=== PATIENT | male | born 1960 | race Caucasian/White ===

== ENCOUNTER 2024-09-22 23:14 | Inpatient (IN) | payer MEDICARE, MEDICAID, SELFPAY ==
[2024-09-22 23:15] VITALS: BMI 23.8
[2024-09-22 23:26] VITALS: BP 126/85; PULSE 103; RESP 18; TEMP 37.1; O2SAT 95
[2024-09-23] VITALS (29 sets, daily range): BP systolic 90–153; BP diastolic 54–88; PULSE 58–81; RESP 12–20; TEMP 36.1–36.9; O2SAT 90–100; BMI 23.9
--- NOTE | 2024-09-23 00:06 | XR_ITS ---
Examination: CT left elbow, with intravenous contrast. 2-D sagittal reconstructions. 2-D coronal reconstructions. 3-D reconstructions. Date and time of exam:September 23, 2024, 0146 hours INDICATION: Redness swelling and pain involving the amenable beginning 2 weeks ago CTDI: vol (mGy):4.50 DLP: (mGycm):81 Technique: Multiple 1.25 mm axial sections of the left elbow with intravenous administration of 60 cc Isovue 370 have been obtained. 2-D sagittal and coronal reconstructions have been obtained. 3-D reconstructions have been obtained. Low dose protocols were performed. One or more of the following dose reduction techniques were used; automated exposure control, adjustment of the mA and/or KV according to patient size, use of iterative reconstruction technique. 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 No acute fracture No cortical bone destruction Large elbow effusion Given the patient's presentation, consider MRI elbow without contrast follow-up
--- NOTE | 2024-09-23 00:06 | XR_ITS ---
Examination: Left elbow 3 views Technique: Elbow AP, oblique, lateral 3 views Exam date and time: September 18, 2024 0103 hours INDICATIONS: Redness swelling and pain involving the elbow 2 weeks. FINDINGS: Advanced elbow osteoarthritis Large elbow effusion. No acute fracture. No francisco cortical bone destruction IMPRESSION: Advanced elbow osteoarthritis. No francisco cortical bone destruction.
--- NOTE | 2024-09-23 00:11 | PD.EDSKIN ---
ED Skin Abcess FB-RME/HPI General Chief complaint: General Adult/Misc Complain Stated complaint: LEFT ELBOW SWELLING Time Seen by Provider: 09/22/24 23:41 Arrival date/time: 09/22/24 23:14 RME / HPI RME / HPI narrative: This section includes all my notes and documentations, including HPI, PE, and ED course. Yaron Herron MD HPI: 63 y/o male with left elbow pain and swelling for 2 weeks but severely worse today. Denies any injury. No fever or chills. Had septic joint at the elbow in the past. No other complaints. ROS: All negative except as documented in HPI. Physical Exam: General: Alert and oriented. No acute distress when remaining still. Eyes: Conjunctivae and lids clear. ENT: No nasal congestion. Neck: Supple. Heart: RRR. Lungs: No respiratory distress. Good air movement. No rhonchi, wheezing, rales. Abdomen: Soft and nontender. Skin: Warm and dry. Neuro: Alert and oriented X 3. Left Elbow: Remarkable for severe edema/calor/tenderness. Equivocal erythema. I reviewed all diagnostic test results: My interpretation of the Elbow x-ray is no acute fracture. My review of the Elbow CT report is: Nonspecific large joint effusion and subcutaneous edema. Recommend clinical correlation to exclude septic joint. Blood tests remarkable for ESR 50, glucose 147, CRP 6.9. Synovial fluid showed 65,096 WBC and 88% neutrophils. Synovial crystals pending. At this point, diagnoses include: Left elbow septic joint and hyperglycemia. Treatment here included: Joint aspiration (see procedure note), IVF, Toradol 30 mg, SoluMedrol 125 mg, cefepime 2 g IV, and vancomycin 2 g IV. I discussed the case with our orthopedic surgeon and our hospitalist. About the presentation and exam and diagnostics and treatments here. And need of further care in the hospital. Will accept the patient. Yaron Herron MD Related Data Home Medications ?Medication ?Instructions ?Recorded ?Confirmed No Known Home Medications 09/24/24 09/24/24 Allergies Allergy/AdvReac Type Severity Reaction Status Date / Time amoxicillin Allergy Unknown Verified 09/17/09 04:46 codeine Allergy Unknown Verified 09/17/09 04:46 Review of Systems Review of Systems Systems Reviewed: All systems reviewed, normal except as documented Past Medical History Social History SMOKING STATUS: Current some day smoker ED Exam Narrative Physical exam: Refer to HPI Course Quality Measures none Orders Category Date Time Status Admit to Inpatient Status Routine Admission 09/23/24 05:18 Active Patient Condition Routine Admission 09/23/24 05:18 Ordered Bedside Blood Glucose ACHS Care 09/23/24 05:29 Completed COVID-19 Screening Questionnaire NOW Care 09/23/24 05:[address] Screening NOW Care 09/23/24 00:07 Completed Decision to Admit X1 Care 09/23/24 05:00 Completed Education, Diabetic NOW Care 09/23/24 05:30 Ordered Miscellaneous Nursing Order NOW Care 09/23/24 05:18 Completed NPO NOW Care 09/23/24 05:03 Completed Notify provider NEEDED Care 09/23/24 05:18 Completed Obtain Written Consent For: .NOW Care 09/23/24 05:09 Completed Saline [Insert IV] NOW Care 09/23/24 00:05 Completed Straight [In and Out Catheter] X1 Care 09/23/24 00:05 Completed Consult to Orthopedic Stat Cons 09/23/24 04:58 Ordered Referral Registered Dietitian Routine Cons 09/23/24 05:29 Active Diet NPO (NOW) Diet 09/23/24 05:[address] elbow LT w con Stat Exams 09/23/24 00:06 Completed XR elbow comp LT min 3V Stat Exams 09/23/24 00:06 Completed ABG [Arterial Blood Gas] Stat Lab 09/23/24 01:55 Completed Alcohol, Blood Medical Stat Lab 09/23/24 00:14 Completed Bilirubin,Direct Stat Lab 09/23/24 00:14 Completed Blood Culture (Lab) Stat Lab 09/23/24 00:19 Results Body Fld Cult w April & Gram St Stat Lab 09/23/24 03:30 Completed CBC AM DRAW Lab 09/24/24 05:20 Completed CBC AM DRAW Lab 09/25/24 04:30 Completed CBC Stat Lab 09/23/24 00:14 Completed CMP [Comprehensive Metabolic Panel] Stat Lab 09/23/24 00:14 Completed CRP [C-Reactive Protein] Stat Lab 09/23/24 00:14 Completed Comprehensive Metabolic Panel AM DRAW Lab 09/24/24 05:20 Completed Comprehensive Metabolic Panel AM DRAW Lab 09/25/24 04:30 Completed Drug Screen,Urine Stat Lab 09/23/24 01:03 Completed ESR [Sed Rate (ESR)] Stat Lab 09/23/24 00:14 Completed Hemoglobin A1C [Glycohemoglobin w (eAG)] Stat Lab 09/23/24 00:14 Completed Lactate (Lactic Acid) Stat Lab 09/23/24 00:14 Completed Magnesium AM DRAW Lab 09/24/24 05:20 Completed Magnesium AM DRAW Lab 09/25/24 04:30 Completed Magnesium Stat Lab 09/23/24 00:14 Completed Partial Thromboplastin Time AM DRAW Lab 09/24/24 05:20 Completed Phosphorous AM DRAW Lab 09/24/24 05:20 Completed Phosphorous AM DRAW Lab 09/25/24 04:30 Completed Procalcitonin Stat Lab 09/23/24 00:14 Completed Prothrombin Time with INR AM DRAW Lab 09/24/24 05:20 Completed Synovial Fluid, Cell Cnt/Diff Stat Lab 09/23/24 03:30 Completed UA, C/S IF [Urinalysis, C/S if Indicated] Stat Lab 09/23/24 01:03 Completed Uric Acid Stat Lab 09/23/24 00:14 Completed Acetaminophen Tab [Tylenol Tab] Med 09/23/24 05:18 Discontinued 650 mg PO Q6H PRN Cefepime Inj [Maxipime Inj] 2 gm Med 09/23/24 14:00 Discontinued SODIUM CHLORIDE 0.9% (Popper) [Ns 0.9% (P)] 50 ml IV Q8HR Dextrose 50% Syr [D50w Syringe Abboject] Med 09/23/24 05:29 Discontinued 25 ml IV Q15MIN PRN Dextrose 50% Syr [D50w Syringe Abboject] Med 09/23/24 05:29 Discontinued 50 ml IV Q15MIN PRN Docusate Sod [Colace] Med 09/23/24 05:18 Discontinued 100 mg PO QDAY PRN Enoxaparin [Lovenox] Med 09/23/24 09:00 Discontinued 40 mg SC QDAY Folic Acid Med 09/23/24 09:00 Discontinued 1 mg PO QDAY Glucagon Inj Med 09/23/24 05:29 Discontinued 1 mg IM Q15MIN PRN INSULIN LISPRO (AdmeLOG) [HumaLOG] Med 09/23/24 06:00 Discontinued See Protocol SC Q6HR Ketorolac Inj [Toradol Inj] Med 09/23/24 05:27 Discontinued 30 mg IVP Q6HR PRN Ketorolac Inj [Toradol Inj] Med 09/23/24 00:06 Discontinued 30 mg IVP X1 ONE LORazepam [Ativan] Med 09/23/24 05:56 Discontinued 0.5 mg PO Q4HR PRN LORazepam [Ativan] Med 09/23/24 05:56 Discontinued 1 mg PO Q4HR PRN LORazepam [Ativan] Med 09/23/24 05:56 Discontinued 2 mg PO Q4HR PRN Lidocaine 1% 20 ml [Xylocaine 1% 20 ML] Med 09/23/24 03:06 Discontinued 20 ml INFL X1 ONE MethylPREDNISolone.* [SoluMEDROL Inj] Med 09/23/24 00:06 Discontinued 125 mg IVP X1 ONE Ringers Lactated 1000 ml [Lactated Ringers] 1,000 ml Med 09/23/24 05:26 Discontinued IV 75 mls/hr Senna [Senokot] Med 09/23/24 05:18 Discontinued 1 tab PO QDAY PRN Sodium Chloride 0.9% 1000 ml [Ns] 1,000 ml Med 09/23/24 00:06 Discontinued IV 999 mls/hr Thiamine [Vitamin B-1] Med 09/23/24 09:00 Discontinued 100 mg PO QDAY Vancomycin Inj 2,000 mg Med 09/23/24 04:24 Discontinued Sodium Chloride 0.9% 500 ml [Ns] 500 ml IV X1 Vancomycin Pharmacy to Dose Med 09/23/24 09:00 Discontinued 1 each IV QDAY PRN Vancomycin/Water 1Gm Ivpb 200 ml Med 09/23/24 06:15 Discontinued IV X1 Vancomycin/Water 1Gm Ivpb 200 ml Med 09/23/24 07:55 Discontinued IV X1 cefTRIAXone/D5w 1gm IV premix [Rocephin/D5w 1gm IV Med 09/23/24 04:24 Discontinued premix] 1 gm in 50 ml IV X1 cefTRIAXone/D5w 1gm IV premix [Rocephin/D5w 1gm IV Med 09/23/24 04:57 Discontinued premix] 1 gm in 50 ml IV X1 Code Status Routine Oth 09/23/24 05:18 Completed Vital Signs Vital signs: Vital Signs Temperature 98.8 F 09/22/24 23:26 Pulse Rate 103 H 09/22/24 23:26 Respiratory Rate 18 09/22/24 23:26 Blood Pressure 126/85 H 09/22/24 23:26 Pulse Oximetry (%) 95 09/22/24 23:26 Oxygen Delivery Method Room Air 09/22/24 23:26 PROCEDURES: Joint Aspiration/Injection Joint Asp./Inject. 1: Time Out Performed: Yes Side of body: left Joint Aspirated: elbow Ultrasound Guidance: No Skin Prep: Povidone-Iodine1% Local Anesthetic: lidocaine 1% Amount of anesthesia used (mL): 6 Needle Size Used: 20G Fluid Obtained: turbid Total fluid obtained (mL): 9 Patient Tolerated Procedure: well Complications: none Skin / Abscess / Foreign Body MDM Narrative MDM Narrative:: Scribe Attestation: Parvin Avila, am scribing for and in the presence of Dr. Herron. Provider Notation: Although this document has been carefully reviewed, there may still be some phonetic and other typographical errors.? These errors are purely grammatical due to imperfections in the software program and should not be construed in any way to? compromise the substance of the patient's medical care during this visit. 63 y/o male with left elbow pain and swelling for 2 weeks but severely worse today. Denies any injury. No fever or chills. Had septic joint at the elbow in the past. No other complaints. Patient data External records reviewed:: [facility] previous records (Reviewed ED records from 03/12/22. Patient was seen for Cervical radiculopathy.) Clinical information provided by:: patient Social determinants that could affect healthcare access:: none Patient has the following chronic illnesses:: None reported How is presenting disease/condition affected by chronic disease/condition?: no chronic disease Evaluation data The following diagnostics were reviewed and interpreted by me:: lab results and radiology exam(s) Lab and/or radiology exams considered but not ordered:: None Interpretation Summary: I reviewed all diagnostic test results: My interpretation of the Elbow x-ray is no acute fracture. My review of the Elbow CT report is: Nonspecific large joint effusion and subcutaneous edema. Recommend clinical correlation to exclude septic joint. Blood tests remarkable for ESR 50, glucose 147, CRP 6.9. Synovial fluid showed 65,096 WBC and 88% neutrophils. Medications / Prescriptions Medications or Prescriptions considered but not ordered:: None Medication administrations:: Medication Administration History Discontinued Medications Acetaminophen (Acetaminophen 325 Mg Tablet) 650 mg PO Q6H PRN PRN Reason: Fever >100.4 or pain 1-3 Stop: 10/23/24 05:17 Last Admin: 09/25/24 04:08 Dose: 650 mg Documented By: SANTINO Dexamethasone Sodium Phosphate (Dexamethasone Sod Phos Inj 10 Mg/Ml Vial) Confirm Administered Dose 10 mg .ROUTE .STK-MED ONE Stop: 09/23/24 14:30 Dextrose (Dextrose 50%-Water Inj 50 Ml Syringe) 25 ml IV Q15MIN PRN PRN Reason: BG 50-70 responsive npo pt Stop: 10/23/24 05:28 Dextrose (Dextrose 50%-Water Inj 50 Ml Syringe) 50 ml IV Q15MIN PRN PRN Reason: BG <50 OR BG <70 & pt unresponsive Stop: 10/23/24 05:28 Docusate Sodium (Docusate Sod 100 Mg Capsule) 100 mg PO QDAY PRN; Protocol PRN Reason: CONSTIPATION Stop: 10/23/24 05:17 Enoxaparin Sodium (Enoxaparin Sod Inj 40 Mg/0.4 Ml Syringe) 40 mg SC QDAY [facility] Stop: 10/07/24 08:59 Last Admin: 09/25/24 08:00 Dose: 40 mg Documented By: Admin: 09/24/24 08:30 Dose: 40 mg Documented By: Admin: 09/23/24 10:12 Dose: Not Given Documented By: SONAL Non-Admin Reason: Held for Procedure Fentanyl Citrate (Fentanyl Cit Inj 50 Mcg/Ml Amp 2ml) Confirm Administered Dose 100 mcg .ROUTE .STProacta-MED ONE Stop: 09/23/24 14:27 Folic Acid (Folic Acid 1 Mg Tablet) 1 mg PO QDAY [facility] Stop: 10/23/24 08:59 Last Admin: 09/25/24 08:00 Dose: 1 mg Documented By: Admin: 09/24/24 08:30 Dose: 1 mg Documented By: Admin: 09/23/24 10:11 Dose: Not Given Documented By: SONAL Non-Admin Reason: NPO Glucagon (Glucagon Inj 1 Mg Vial) 1 mg IM Q15MIN PRN PRN Reason: BG <70, and no IV access Sodium Chloride (Ns) 1,000 mls @ 999 mls/hr IV .Q1H1M ONE Stop: 09/23/24 01:06 Last Infusion: 09/23/24 01:16 Dose: Infused Documented By: Admin: 09/23/24 00:22 Dose: 999 mls/hr Documented By: CVL Ceftriaxone Sodium/Dextrose (Rocephin/D5w 1gm Iv Premix) 1 gm in 50 mls @ 100 mls/hr IV X1 ONE Stop: 09/23/24 04:53 Last Infusion: 09/23/24 05:02 Dose: Infused Documented By: Admin: 09/23/24 04:35 Dose: 100 mls/hr Documented By: CVL Vancomycin HCl 2,000 mg/ (Sodium Chloride) 500 mls @ 150 mls/hr IV X1 ONE Stop: 09/23/24 07:43 Last Admin: 09/23/24 08:24 Dose: Not Given Documented By: DB Non-Admin Reason: Cancelled by Provider Ceftriaxone Sodium/Dextrose (Rocephin/D5w 1gm Iv Premix) 1 gm in 50 mls @ 100 mls/hr IV X1 ONE Stop: 09/23/24 05:26 Last Infusion: 09/23/24 05:36 Dose: Infused Documented By: Admin: 09/23/24 05:09 Dose: 100 mls/hr Documented By: CVL Lactated Ringer's (Lactated Ringers) 1,000 mls @ 75 mls/hr IV .[id number] [facility] Stop: 09/24/24 08:05 Last Admin: 09/23/24 18:39 Dose: 75 mls/hr Documented By: Infusion: 09/23/24 18:39 Dose: Infused Documented By: Admin: 09/23/24 05:38 Dose: 75 mls/hr Documented By: CVL Cefepime HCl 2 gm/ Sodium (Chloride) 50 mls @ 100 mls/hr IV Q8HR [facility] Stop: 09/30/24 13:59 Last Admin: 09/24/24 05:01 Dose: 100 mls/hr Documented By: Infusion: 09/23/24 21:50 Dose: Infused Documented By: Admin: 09/23/24 21:20 Dose: 100 mls/hr Documented By: Admin: 09/23/24 18:00 Dose: Not Given Documented By: Non-Admin Reason: not on ms floor at this time Vancomycin HCl (Vancomycin/Water 1gm Ivpb) 200 mls @ 120 mls/hr IV X1 ONE Stop: 09/23/24 07:54 Last Infusion: 09/23/24 08:24 Dose: Infused Documented By: Admin: 09/23/24 06:22 Dose: 120 mls/hr Documented By: MONAEL Vancomycin HCl (Vancomycin/Water 1gm Ivpb) 200 mls @ 120 mls/hr IV X1 ONE Stop: 09/23/24 09:34 Last Infusion: 09/23/24 10:30 Dose: Infused Documented By: Admin: 09/23/24 08:27 Dose: 120 mls/hr Documented By: SONAL Vancomycin/Sodium Chloride (Vancomycin/Ns 750 Mg Ivpb) 750 mg in 150 mls @ 120 mls/hr IV BID@1000,2200 ANA; Protocol Stop: 09/30/24 21:59 Last Infusion: 09/25/24 00:20 Dose: Infused Documented By: Admin: 09/24/24 23:05 Dose: 120 mls/hr Documented By: Infusion: 09/24/24 11:31 Dose: Infused Documented By: Admin: 09/24/24 10:16 Dose: 120 mls/hr Documented By: Infusion: 09/23/24 23:06 Dose: Infused Documented By: Admin: 09/23/24 21:51 Dose: 120 mls/hr Documented By: ALLEN Ceftriaxone Sodium/Dextrose (Rocephin/D5w 2gm) 2 gm in 50 mls @ 100 mls/hr IV QDAY ANA Stop: 10/01/24 09:59 Last Admin: 09/25/24 08:00 Dose: 100 mls/hr Documented By: Infusion: 09/24/24 14:12 Dose: Infused Documented By: Admin: 09/24/24 13:42 Dose: 100 mls/hr Documented By: MAGDALENO Vancomycin HCl (Vancomycin/Water 1gm Ivpb) 200 mls @ 120 mls/hr IV BID@1000,2200 ANA; Protocol Stop: 10/02/24 09:59 Last Admin: 09/25/24 10:08 Dose: 120 mls/hr Documented By: TAD Insulin Human Lispro (Insulin Lispro (Admelog) 1 Unit/0.01 Ml Unit) 0 unit SC Q6HR ANA; Protocol Stop: 10/23/24 05:59 Last Admin: 09/23/24 17:59 Dose: Not Given Documented By: Non-Admin Reason: Per Protocol Admin: 09/23/24 12:35 Dose: Not Given Documented By: SONAL Non-Admin Reason: NPO Admin: 09/23/24 06:38 Dose: Not Given Documented By: MONAEL Non-Admin Reason: NPO Insulin Human Lispro (Insulin Lispro (Admelog) 1 Unit/0.01 Ml Unit) 0 unit SC ACHS ANA; Protocol Stop: 10/24/24 07:29 Insulin Human Lispro (Insulin Lispro (Admelog) 1 Unit/0.01 Ml Unit) 0 unit SC ACHS ANA; Protocol Stop: 10/23/24 21:34 Last Admin: 09/25/24 12:50 Dose: Not Given Documented By: MAGDALENO Non-Admin Reason: Patient Refused Admin: 09/25/24 07:30 Dose: Not Given Documented By: TAD Non-Admin Reason: Per Protocol Admin: 09/24/24 20:24 Dose: Not Given Documented By: SANTINO Non-Admin Reason: Per Protocol Admin: 09/24/24 16:45 Dose: Not Given Documented By: TAD Non-Admin Reason: Patient Refused Admin: 09/24/24 12:43 Dose: Not Given Documented By: TAD Non-Admin Reason: Per Protocol Admin: 09/24/24 07:43 Dose: 2 unit Documented By: TAD Co-signed By: MAGDALENO Insulin Human Lispro (Insulin Lispro (Admelog) 1 Unit/0.01 Ml Unit) 3 unit SC X1 ONE Stop: 09/23/24 22:41 Last Admin: 09/23/24 22:53 Dose: 3 unit Documented By: ALLEN Co-signed By: ROOSEVELT Ketorolac Tromethamine (Ketorolac Inj 30 Mg/Ml Vial) 30 mg IVP X1 ONE Stop: 09/23/24 00:07 Last Admin: 09/23/24 00:22 Dose: 30 mg Documented By: STEVE Ketorolac Tromethamine (Ketorolac Inj 30 Mg/Ml Vial) 30 mg IVP Q6HR PRN PRN Reason: PAIN SCALE 4-10(Mod-Sev Stop: 09/28/24 05:26 Last Admin: 09/24/24 10:17 Dose: 30 mg Documented By: TAD Ketorolac Tromethamine (Ketorolac Inj 30 Mg/Ml Vial) Confirm Administered Dose 30 mg .ROUTE .STK-MED ONE Stop: 09/23/24 14:30 Lidocaine HCl (Lidocaine Hcl 1% 20 Ml Vial) 20 ml INFL X1 ONE Stop: 09/23/24 03:07 Last Admin: 09/23/24 04:02 Dose: 20 ml Documented By: CVL Lorazepam (Lorazepam 0.5 Mg Tablet) 0.5 mg PO Q4HR PRN PRN Reason: CIWA Score 2-6 Stop: 09/28/24 05:55 Lorazepam (Lorazepam 0.5 Mg Tablet) 1 mg PO Q4HR PRN PRN Reason: CIWA SCORE 7-11 Stop: 09/28/24 05:55 Lorazepam (Lorazepam 0.5 Mg Tablet) 2 mg PO Q4HR PRN PRN Reason: CIWA SCORE 12-15 Stop: 09/28/24 05:55 Methylprednisolone Sodium Succinate (Methylprednisolone Sod Succ 62.5 Mg/Ml 2ml Vial) 125 mg IVP X1 ONE Stop: 09/23/24 00:07 Last Admin: 09/23/24 00:24 Dose: 125 mg Documented By: CVL Midazolam HCl (Midazolam Inj 1 Mg/Ml Vial 2 Ml) Confirm Administered Dose 2 mg .ROUTE .STK-MED ONE Stop: 09/23/24 14:28 Ondansetron HCl (Ondansetron Inj 2 Mg/Ml Inj 2 Ml) Confirm Administered Dose 4 mg .ROUTE .STK-MED ONE Stop: 09/23/24 14:30 Pharmacy Consult (Vancomycin Pharmacy To Dose 1 Each Each) 1 each IV QDAY PRN PRN Reason: PROTOCOL Stop: 10/23/24 08:59 Phenylephrine HCl (Phenylephrine Inj In Ns 100 Mcg/Ml 10 Ml Syringe) Confirm Administered Dose 1,000 mcg .ROUTE .STK-MED ONE Stop: 09/23/24 15:58 Phenylephrine HCl (Phenylephrine Inj In Ns 100 Mcg/Ml 10 Ml Syringe) Confirm Administered Dose 1,000 mcg .ROUTE .STK-MED ONE Stop: 09/23/24 16:21 Propofol (Propofol Inj 10 Mg/Ml Vial 20 Ml) Confirm Administered Dose 200 mg IV .STK-MED ONE Stop: 09/23/24 14:27 Propofol (Propofol Inj 10 Mg/Ml Vial 20 Ml) Confirm Administered Dose 200 mg IV .STK-MED ONE Stop: 09/23/24 15:46 Sennosides (Senna Tablet) 1 tab PO QDAY PRN; Protocol PRN Reason: constipation Stop: 10/23/24 05:17 Thiamine HCl (Thiamine 100 Mg Tablet) 100 mg PO QDAY ANA Stop: 10/23/24 08:59 Last Admin: 09/25/24 08:00 Dose: 100 mg Documented By: Admin: 09/24/24 08:30 Dose: 100 mg Documented By: Admin: 09/23/24 10:11 Dose: Not Given Documented By: SONAL Non-Admin Reason: NPO Treatment here from me included: Joint aspiration (see procedure note), IVF, Toradol 30 mg, SoluMedrol 125 mg, cefepime 2 g IV, and vancomycin 2 g IV. Consultations Consultation(s) initiated? (list below): Yes Consultation #1 (Physician, Specialty, Details): I discussed the case with our orthopedic surgeon and our hospitalist. About the presentation and exam and diagnostics and treatments here. And need of further care in the hospital. Will accept the patient. Diagnosis Skin/Abscess Differential Diagnosis: abscess of skin or subcutaneous tissue, viral exanthem, dermatophytosis, urticaria, herpes zoster, cellulitis, insect bites and contact dermatitis Most likely diagnosis given after review of the tests above:: At this point, diagnoses include: Left elbow septic joint and hyperglycemia. Admission Indicated Admission indicated?: indicated Explain why admission is indicated or not indicated:: Left elbow septic joint and hyperglycemia. Admission Request Was there a request for admission?: Yes Admission Attestation Admission request attestation: Discussed case with Hospitalist service regarding admission. Discussed patients ED course, exam findings, labs, and radiology results. The Hospitalist agreed to accept the patient for admission. Disposition Plan Disposition Plan: Admit Critical Care Time Critical Care Time Critical Care Time: Yes Total Critical Care Time (min.): 36 Attestation: Due to a high probability of clinically significant, life threatening deterioration, the patient required my highest level of preparedness to intervene emergently and I personally spent this critical care time directly and personally managing the patient. This critical care time included obtaining a history; examining the patient; ordering and review of studies; arranging urgent treatment with development of a management plan; evaluation of patient's response to treatment; frequent reassessment; and discussions with family and other providers. It was exclusive of separately billable procedures and treating other patients and teaching time. Discharge Plan Plan Patient Disposition: Admit Acute Care w/in Hospital Problem List Clinical Impression: Septic joint of left elbow, Hyperglycemia
[2024-09-23] MEDS: SODIUM CHLORIDE 0.9% 1000 ML 1,000 ML 999 ML IV (00:22)
[2024-09-23] MEDS: KETOROLAC INJ 30 MG/ML VIAL IVP (00:22)
[2024-09-23] MEDS: MethylPREDNISolone SOD SUCC 62.5 MG/ML 2ML VIAL 125 MG IVP (00:24)
[2024-09-23 00:25] LABS: Lactate (Lactic Acid) 1.0 mMol/L (0.4-2.0)
[2024-09-23 00:29] LABS: Basophils # (Auto) 0.0 Thou/mm3 (0.0-0.2); Basophils % (Auto) 0 % (0-2.5); Eosinophils # (Auto) 0.2 Thou/mm3 (0.0-0.5); Eosinophils % (Auto) 2 % (0-10); Hematocrit 46.1 % (41.0-53.0); Hemoglobin 15.4 g/dL (13.5-16.0); Immature Granulocytes Auto 0.01 Thou/mm3 (0.00-0.00); Lymphocytes # (Auto) 1.4 Thou/mm3 (1.0-4.8); Lymphocytes % (Auto) 18 % (10-50); Mean Corpuscular HGB Conc 33.4 g/dl (31.0-37.0); Mean Corpuscular Hemoglobin 31.1 pg (25.0-35.0); Mean Corpuscular Volume 93 fL (80-100); Monocytes # (Auto) 0.8 Thou/mm3 (0.0-0.8); Monocytes % (Auto) 10 % (0-12); Neutrophils # (Auto) 5.5 Thou/mm3 (1.8-7.7); Neutrophils % (Auto) 70 % (37-80); Nucleated Red Blood Cell # 0.00 Thou/mm3 (0.00-0.00); Nucleated Red Blood Cell % 0 /100 WBC (0); Platelet Count 183 Thou/mm3 (140-440); RDW Standard Deviation 47.1 fL (35.1-43.9); Red Blood Count 4.95 Miln/mm3 (4.50-5.90); White Blood Count 7.8 Thou/mm3 (3.8-10.6)
[2024-09-23 00:38] LABS: Sed Rate (ESR) 50 mm/hr (0-20)
[2024-09-23 00:55] LABS: Albumin, Serum 4.0 gm/dL (3.4-4.8); Albumin/Globulin Ratio 1.7 (1.2-2.2); Alkaline Phosphatase 99 U/L (46-116); Anion Gap 8 (7-16); Aspartate Amino Transferase 14 U/L (0-34); BUN/Creatinine Ratio 15 Ratio (12-20); Bilirubin,Direct 0.3 mg/dL (0.0-0.3); Bilirubin,Total 0.7 mg/dL (0.3-1.2); Blood Urea Nitrogen 15 mg/dL (9-23); C-Reactive Protein 6.9 mg/dL (0.0-0.9); Calcium 9.2 mg/dL (8.3-10.6); Calcium (Corrected) 9.2 mg/dL (8.5-10.1); Carbon Dioxide 25.6 mMol/L (20.0-31.0); Chloride 105 mMol/L (98-107); Creatinine (Component) 1.0 mg/dL (0.6-1.3); Estimated Creatinine Clearance 78.4 mL/min (>60); Globulin 2.3 gm/dL (2.3-3.5); Glucose 247 mg/dL (74-106); Magnesium 2.1 mg/dL (1.6-2.6); Osmolality,Calculated 286 (275-295); Potassium 3.7 mMol/L (3.4-5.1); Sodium 139 mMol/L (136-145); Total Protein 6.3 gm/dL (5.7-8.2); eGFR > 60 See Note
[2024-09-23 01:25] LABS: Alanine Aminotransferase 8 U/L (10-49); Alcohol, Blood Medical < 3.0 mg/dL (0-10.0); Procalcitonin 0.08 ng/ml (0.0-0.49); Uric Acid 6.3 mg/dL (3.7-9.2)
[2024-09-23 01:40] LABS: Glucose Estimated Average 148 mg/dL (80-131); Hemoglobin A1C 6.8 % Hgb (4.8-6.0)
[2024-09-23 02:01] LABS: Base Excess 0 (-3-3); HCO3 25 mEq/L (20-26); Inspired Oxygen, FIO2 21 %; O2 Saturation 94 % (91-98); PCO2 39 mmHg (32.0-48.0); PO2 62 mmHg (83-108); pH, Arterial 7.42 (7.35-7.45)
[2024-09-23 02:02] LABS: Allen Test Performed/OK; Puncture Site Right Radial
--- NOTE | 2024-09-23 03:01 | PRELIM_ITS ---
CT left elbow with intravenous contrast (axial sections with sagittal and coronal reformats) September 23, 2024 at 0146 hours Clinical History: Left elbow edema/erythema/calor/tenderness. Comparison: No prior study is available for comparison. Findings: There is a large joint effusion. Severe degenerative changes with multiple loose calcified intra-articular bodies up to 1.3 cm. Large osteophytes. Alignment is normal. No acute fracture is identified. There is subcutaneous fat stranding along the medial side of the elbow. Impression: Prominent degenerative arthritis. Nonspecific large joint effusion and subcutaneous edema. Recommend clinical correlation to exclude septic joint. Discussion Details: Results verbally communicated to : Dr. Herron at 02:46 AM 09/23/2024 Report Electronically Signed By: Gavin Murphy 09/23/2024 3:01:35 AM [EST]
[2024-09-23] MEDS: LIDOCAINE HCL 1% 20 ML VIAL INFL (04:02)
[2024-09-23] MEDS: cefTRIAXone/D5w 1gm IV premix 1 GM/50 ML BAG IV ×2 (04:35→05:09)
[2024-09-23 04:42] LABS: Source,Synovial Fluid Elbow
[2024-09-23 04:46] LABS: Synovial Fluid Appearance Cloudy; Synovial Fluid Color Yellow; Synovial Fluid Mononuclear 12 %; Synovial Fluid Polynuclear 88 %; Synovial Fluid RBC 4000 /cmm; Synovial Fluid WBC 65096 /cmm
--- NOTE | 2024-09-23 05:31 | PD.RESHP ---
Documentation for date of: 09/23/24 HPI History of Present Illness Chief complaint: Swollen painful elbow History of present illness: 63 y/o M with PMHx significant for left elbow surgery 5 years ago, recurrent episodes of pain/swelling since then presented to ED with 2 weeks of increased pain and swelling and intermittent fevers. Patient reports that he has not seen a doctor since his last surgery 5 years ago. Reports active meth use. Patient denies shortness of breath, chest pain, nausea, vomiting. ED COURSE: Labs significant for: WBC 7.8, lactic acid 1.0, Pro-Jadiel negative, A1c 6.8%. Imaging significant for: Elbow x-ray and CT, reads pending. ED physician performed joint aspiration, reported greater than 60K WBCs. Patient received 1 L bolus normal saline, 1 g Rocephin. PMH: None PSH: Left elbow surgery, right knee replacement. SH: Reports 12-hqyw-nuco smoking history, drinks quarter bottle of hard alcohol per day, reports active meth use. Allergies:?Codeine, amoxicillin Medications: None Review of Systems Review of Systems Systems Reviewed: All systems reviewed, normal except as documented Past Medical History Past Medical History Comments PMH COMMENT: PMH: None PSH: Left elbow surgery, right knee replacement. SH: Reports 29-ldxy-rshw smoking history, drinks quarter bottle of hard alcohol per day, reports active meth use. Allergies:?Codeine, amoxicillin Medications: None Exam Vital Signs Temp Pulse Resp BP Pulse Ox O2 Del Method 97.7 F 77 12 135/84 H 92 L Room Air 09/23/24 04:35 09/23/24 04:35 09/23/24 04:35 09/23/24 04:35 09/23/24 02:54 09/23/24 02:54 Narrative Exam PE: Gen: Well-developed and well-nourished. HEENT: NCAT, PERRLA, EOMI, MMM, anicteric conjunctivae. CVS: normal S1 and S2. RRR. No M/R/G. Resp: CTA B/L. No rhonchi, rales, crackles or wheezing. Abd: soft, non-tender, non-distended. BS+ in all 4 quadrants. MSK: Good ROM in LUE & BLE. No edema or rash. LUE range of motion limited by pain. L elbow swollen, tender, warm to touch. Neuro: CN II-XII grossly intact. Strength 5/5 in BUE & BLE. Alert and oriented x3. Psych: appropriate mood and affect. Results: Labs 09/23/24 00:14 09/23/24 00:14 Labs: Short CBC 09/23/24 Range/Units 00:14 WBC 7.8 (3.8-10.6) Thou/mm3 Hgb 15.4 (13.5-16.0) g/dL Hct 46.1 (41.0-53.0) % Plt Count 183 (140-440) Thou/mm3 BMP 09/23/24 00:14 Sodium 139 Potassium 3.7 Chloride 105 Carbon Dioxide 25.6 BUN 15 Creatinine 1.0 Glucose 247 H Calcium 9.2 Liver Function 09/23/24 Range/Units 00:14 Total Bilirubin 0.7 (0.3-1.2) mg/dL Direct Bilirubin 0.3 (0.0-0.3) mg/dL AST 14 (0-34) U/L ALT 8 L (10-49) U/L Alkaline Phosphatase 99 (46-116) U/L Albumin 4.0 (3.4-4.8) gm/dL ABG Interpretation ABG results: 09/23/24 01:55 ABG pH 7.42 ABG pCO2 39 ABG pO2 62 L ABG HCO3 25 ABG O2 Saturation 94 ABG Base Excess 0 Quality Measures Quality Measures VTE prophylaxis Advance care planning discussed with:: patient Medications Home Medications and Allergies Allergies Allergy/AdvReac Type Severity Reaction Status Date / Time amoxicillin Allergy Unknown Verified 09/17/09 04:46 codeine Allergy Unknown Verified 09/17/09 04:46 Visit Medications Acetaminophen (Acetaminophen 325 Mg Tablet) 650 mg PO Q6H PRN PRN Reason: Fever >100.4 or pain Stop: 10/23/24 05:17 Dextrose (Dextrose 50%-Water Inj 50 Ml Syringe) 25 ml IV Q15MIN PRN PRN Reason: BG 50-70 responsive npo pt Stop: 10/23/24 05:28 Dextrose (Dextrose 50%-Water Inj 50 Ml Syringe) 50 ml IV Q15MIN PRN PRN Reason: BG <50 OR BG <70 & pt unresponsive Stop: 10/23/24 05:28 Docusate Sodium (Docusate Sod 100 Mg Capsule) 100 mg PO QDAY PRN; Protocol PRN Reason: CONSTIPATION Stop: 10/23/24 05:17 Enoxaparin Sodium (Enoxaparin Sod Inj 40 Mg/0.4 Ml Syringe) 40 mg SC QDAY [facility] Stop: 10/07/24 08:59 Glucagon (Glucagon Inj 1 Mg Vial) 1 mg IM Q15MIN PRN PRN Reason: BG <70, and no IV access Vancomycin HCl 2,000 mg/ (Sodium Chloride) 500 mls @ 150 mls/hr IV X1 ONE Stop: 09/23/24 07:43 Lactated Ringer's (Lactated Ringers) 1,000 mls @ 75 mls/hr IV .[id number] ANA Stop: 09/24/24 08:05 Cefepime HCl 2 gm/ Sodium (Chloride) 50 mls @ 100 mls/hr IV Q8HR ANA Stop: 09/30/24 05:27 Insulin Human Lispro (Insulin Lispro (Admelog) 1 Unit/0.01 Ml Unit) 0 unit SC Q6HR ANA; Protocol Stop: 10/23/24 05:59 Ketorolac Tromethamine (Ketorolac Inj 30 Mg/Ml Vial) 30 mg IVP Q6HR PRN PRN Reason: PAIN SCALE 4-10(Mod-Sev Stop: 09/28/24 05:26 Pharmacy Consult (Vancomycin Pharmacy To Dose 1 Each Each) 1 each IV QDAY [facility] Stop: 10/23/24 08:59 Sennosides (Senna Tablet) 1 tab PO QDAY PRN; Protocol PRN Reason: constipation Stop: 10/23/24 05:17 Discontinued Medications Sodium Chloride (Ns) 1,000 mls @ 999 mls/hr IV .Q1H1M ONE Stop: 09/23/24 01:06 Last Infusion: 09/23/24 01:16 Dose: Infused Ceftriaxone Sodium/Dextrose (Rocephin/D5w 1gm Iv Premix) 1 gm in 50 mls @ 100 mls/hr IV X1 ONE Stop: 09/23/24 04:53 Last Infusion: 09/23/24 05:02 Dose: Infused Ceftriaxone Sodium/Dextrose (Rocephin/D5w 1gm Iv Premix) 1 gm in 50 mls @ 100 mls/hr IV X1 ONE Stop: 09/23/24 05:26 Last Admin: 09/23/24 05:09 Dose: 100 mls/hr Ketorolac Tromethamine (Ketorolac Inj 30 Mg/Ml Vial) 30 mg IVP X1 ONE Stop: 09/23/24 00:07 Last Admin: 09/23/24 00:22 Dose: 30 mg Lidocaine HCl (Lidocaine Hcl 1% 20 Ml Vial) 20 ml INFL X1 ONE Stop: 09/23/24 03:07 Last Admin: 09/23/24 04:02 Dose: 20 ml Methylprednisolone Sodium Succinate (Methylprednisolone Sod Succ 62.5 Mg/Ml 2ml Vial) 125 mg IVP X1 ONE Stop: 09/23/24 00:07 Last Admin: 09/23/24 00:24 Dose: 125 mg Assessment & Plan Plan 63 y/o M with PMHx significant for left elbow surgery 5 years ago, recurrent episodes of pain/swelling since then presented to ED with 2 weeks of increased pain and swelling and intermittent fevers, admitted for septic arthritis. #Septic arthritis, left elbow Patient presented with two weeks of left elbow swelling, pain, intermittent fevers. Patient is history of surgery to left elbow 5 years ago, reports intermittent episodes of pain and swelling since then. Joint aspiration performed in ED, initial analysis showed 65K WBCs. Patient stable 1 L bolus normal saline in the ED. Dr. Babcock made aware of patient, on board. - Blood and aspirate cultures pending - Cefepime 2 g IV every 8 hour (started 09/23) - Vancomycin pharmacy dosing (started 09/23) - IVF: LR at 75 mL/h x 2 L - N.p.o. pending procedure - Dr. Babcock following, appreciate recommendations - Ketorolac for for pain management #Diabetes, previously diagnosed Patient has any medical history including diabetes. Hemoglobin A1c as of today 6.8%. - ISS - Diabetic education - Outpatient follow-up #Meth abuse #Alcohol abuse Patient ports active meth use. Patient also reports alcohol use, recent cut back to quarter bottle of hard liquor per day. - [facility] protocol - customer services supervisor - Education regarding addiction services DVT prophylaxis: Lovenox GI prophylaxis: None Diet: N.p.o. pending procedure Lines: Peripheral IV Code status: Full code Plan of care discussed with attending Dr. Bland. Alek Ragsdale MD PGY-2 Attending Provider Attestation/Addendum I attest that I was physically present for the evaluation, physical examination, lab and imaging review of the patient with the residents. I discussed the case with the residents and agree with the findings and plans of care as documented above. After examination of the patient and review of the clinical data I feel that this patient needs admission to the hospital for further treatment/evaluation. Patient is a 63 years old male with past medical history of left elbow surgery 5 years ago who presented to the ED with complaint of recurrent episodes of pain and swelling in his left elbow. He states that he has been having problem with his left elbow more than 20 years ago. Patient has not followed any doctors since his last surgery 5 years ago. Patient is homeless and uses methamphetamine, last use yesterday. In the ED, vital signs were stable, saturating well on room air. Lab results show hemoglobin A1c of 6.8. Joint aspiration was done in the ED, fluids showed 65,000 WBCs. Orthopedics was contacted by ED, recommended admission for further management and evaluation. Preliminary CT of the elbow showed prominent degenerative arthritis and nonspecific large joint effusion with subcutaneous edema. Patient has swelling of his left elbow, with warmth and limited range of motion. We will admit the patient for management of septic arthritis. Started him on broad-spectrum IV antibiotics with cefepime and vancomycin, cultures are obtained, will also start on gentle IV hydration. Started ketorolac for analgesia. Insulin sliding scale for diabetes. We will start CIWA protocol, with folate, thiamine and lorazepam. Dieudonne Bland MD
[2024-09-23] MEDS: RINGERS LACTATED 1000 ML 1,000 ML 75 ML IV ×2 (05:38→18:39)
[2024-09-23] MEDS: VANCOMYCIN/WATER 1GM IVPB 200 ML IV ×2 (06:22→08:27)
--- NOTE | 2024-09-23 10:27 | PD.ORTHCON ---
HPI Consult details Reason for consultation narrative: left elbow pain History of present illness: Patient is a 63-year-old Homeless male with left elbow pain. Has been ongoing for the last 2 weeks. This worsened in the last 1 day. He has a history of a septic elbow 5 years ago that was washed out. He reports he had difficulty moving his fingers but improved since the aspiration. He endorses active methamphetamine use. Meds Home Medications and Allergies Allergies Allergy/AdvReac Type Severity Reaction Status Date / Time amoxicillin Allergy Unknown Verified 09/17/09 04:46 codeine Allergy Unknown Verified 09/17/09 04:46 Exam Vital Signs Temp Pulse Resp BP Pulse Ox O2 Del Method 98.0 F 73 16 133/80 H 95 Room Air 09/23/24 08:00 09/23/24 08:00 09/23/24 08:00 09/23/24 08:00 09/23/24 08:00 09/23/24 08:00 Additional findings Additional findings: Patient is in no acute distress and is cooperative with the examination today. Patient has a normal mood and affect. Breathing is nonlabored. In no respiratory distress. Bilateral extremities were evaluated and demonstrates sensation intact to light touch. Palpable radial pulses are palpated Left elbow demonstrates sensation tact to light touch in the radial ulnar and median nerve distributions. Motor is also intact in these distributions Left elbow demonstrates an effusion and is tender to palpation. Range of motion is 30 to 90 degrees and is painful Cell count 64,000 X-rays of the left elbow demonstrate significant degenerative changes of the left elbow Results - Ortho Labs 09/23/24 00:14 09/23/24 00:14 Labs: Short CBC 09/23/24 Range/Units 00:14 WBC 7.8 (3.8-10.6) Thou/mm3 Hgb 15.4 (13.5-16.0) g/dL Hct 46.1 (41.0-53.0) % Plt Count 183 (140-440) Thou/mm3 BMP 09/23/24 00:14 Sodium 139 Potassium 3.7 Chloride 105 Carbon Dioxide 25.6 BUN 15 Creatinine 1.0 Glucose 247 H Calcium 9.2 Liver Function 09/23/24 Range/Units 00:14 Total Bilirubin 0.7 (0.3-1.2) mg/dL Direct Bilirubin 0.3 (0.0-0.3) mg/dL AST 14 (0-34) U/L ALT 8 L (10-49) U/L Alkaline Phosphatase 99 (46-116) U/L Albumin 4.0 (3.4-4.8) gm/dL ABG Interpretation ABG results: 09/23/24 01:55 ABG pH 7.42 ABG pCO2 39 ABG pO2 62 L ABG HCO3 25 ABG O2 Saturation 94 ABG Base Excess 0 Assessment & Plan Problem List (1) Septic joint of left elbow: Status: Acute Assessment and plan: Patient is a 63-year-old male with diabetes who is homeless with increasing left elbow pain. He was diagnosed with a septic left elbow in the past and had irrigation debridement. He Recently developed left elbow pain and was found to have a septic elbow. - N.p.o. - Plan for irrigation and debridement Once operating room is available - I discussed the risk and benefits of surgery with him and discussed the risk of persistent or recurrent infection, damage to nerves and vessels, and wound healing issues. He is an active drug user and we discussed the importance of cessation. A sign and witnessed consent was placed in the chart
--- NOTE | 2024-09-23 15:17 | PC.SS ---
Patient Enrique Beth is a 63 Year old male admitted for Left Elbow Swelling. SS met with patient at bedside to discuss discharge plan and verify demographic information. Patient reports he is homeless and his medical decision maker is his ex-, Tammi Beth [phone]. Patient is able to ambulate and does not utilize any source of DME to assist with ambulation. SS inquired about Shelters and the patient stated he rather discharge to the community. SS informed patient SS could assist with transportation if needed, Patient verbalized understanding. Next of kin: Ex , Tammi Beth Discharge Plan: Community
--- NOTE | 2024-09-23 16:47 | PD.SUROPNT ---
Date of Procedure 09/23/24 Pre Op Diagnosis left septic elbow arthritis Post Op Diagnosis left septic elbow arthritis Procedure left elbow irrigation and debridement Findings purulence noted and elbow artilage noted Procedure Description Indications: Patient is a 63yo male with a left septic elbow. We discussed irrigation debridement given the septic arthritis in his elbow. His cell count was 64,000. This time when his consent was placed in the chart Procedure in detail: The patient was prepped and draped in usual sterile fashion. A sterile tourniquet was placed but was never inflated. The pre-existing incision was used. A lateral approach to the elbow was utilized. The end prior surgical skin incision was used and we split the EDC in the upper one third of the radial head to avoid the L UCL. We pronated the hand to ensure that the PIN was protected. Significant purulence was found and extruded from the joint. Cultures were taken. 9 L of saline was used to irrigate the joint using cystoscopy tubing. We took the elbow through range of motion in both pronation next and supination to ensure that there was no instability of the joint after this was done. The patient was closed with nonbladed suture including PDS, Monocryl, 3-0 nylon. The patient tolerated the procedure well. Postoperative plan: Weightbearing as tolerated Follow-up in 2 weeks. Sling for comfort Follow cultures and IV antibiotics Anesthesia GETA Implants none Pathology / specimen None Pathology comment: none, cultures taken Estimated Blood Loss 50 Condition Stable Disposition floor Surgeon Leonidas Babcock MD Surgical Staff Operation Date: 09/23/24 16:00 Case Staff Anesthesiologist: Uriel Raman
--- NOTE | 2024-09-23 16:51 | SUR.PHASEI ---
pt received to [facility]. vss. breathing even and unlabored. dressing to left elbow cdi. report from dr torres and nurse antione. good pulses noted.
--- NOTE | 2024-09-23 17:18 | SUR.PHASEI ---
oral airway out by patient. pt awake and alert. denies pain and nausea.
--- NOTE | 2024-09-23 17:30 | SUR.PHASEI ---
report called to yuliana on ms. pt awake and alert. denies pain and nausea. vss. dressing remains cdi. tolerated po ice chips. transported to room via bed.
--- NOTE | 2024-09-23 21:06 | ESPR_ITS ---
<Statement entered by Matthew Marie MD - 09/23/24 22:49> Patient was examined and case was reviewed with team including attending physician. Note reviewed, I agree with most of its contents and agree with the patient's care as documented by Dr. Arias Patient seen today at the bedside found awake, alert, orientedx3. No overnight events reported. Vital signs stable at this time. Reported that this is his third time having an infection of his left elbow. Patient is homeless PICC line option maybe difficult. ID was consulted, will await reccomendations. Patient is scheduled to go to OR today with Orthopedic surgery for septic arthritis. Matthew Marie MD PGY-2 Documentation for date of: 09/23/24 Subjective Subjective Interval history: Patient was seen in the ED this morning. Patient reported that this is the third episode of infection involving the same elbow. No other complaints at this time. Patient is aware of and acknoweldged the plan for surgery today for joint washout. Exam Vital Signs Temp Pulse Resp BP Pulse Ox O2 Del Method O2 Flow Rate 97.0 F 67 18 140/70 H 93 L Room Air 4 09/23/24 20:00 09/23/24 20:00 09/23/24 20:00 09/23/24 20:00 09/23/24 20:00 09/23/24 13:26 09/23/24 17:06 Narrative Exam Physical Exam General: Awake and in no acute distress. Conversational and non-toxic appearing. HEENT: Normocephalic, atraumatic. Heart: Regular rate and rhythm, no murmurs. Lungs: Clear to auscultation with no wheezing or crackles. Abdomen: Soft, nondistended, nontender. No guarding or rebound tenderness. Neurologic: Alert and oriented x3, no gross neurological deficit, and patient able to move all 4 extremities. MSK: LUE range of motion limited by pain. Left elbow swollen, tender, and warm to touch. Full range of motion in other three extremities. Skin: No rash or ecchymoses. Objective Labs 09/24/24 05:20 09/24/24 05:20 Labs: Laboratory Results - last 24 hr 09/23/24 09/23/24 09/23/24 00:14 01:55 03:30 WBC 7.8 RBC 4.95 Hgb 15.4 Hct 46.1 MCV 93 MCH 31.1 MCHC 33.4 RDW Std Deviation 47.1 H Plt Count 183 Neut % (Auto) 70 Lymph % (Auto) 18 Powell % (Auto) 10 Eos % (Auto) 2 Baso % (Auto) 0 Neut # (Auto) 5.5 Lymph # (Auto) 1.4 Powell # (Auto) 0.8 Eos # (Auto) 0.2 Baso # (Auto) 0.0 Immature Gran # (Auto) 0.01 H Absolute Nucleated RBC 0.00 Immature Gran % 0 Nucleated RBC % 0 ESR 50 H Puncture Site Right Radial ABG pH 7.42 ABG pCO2 39 ABG pO2 62 L ABG HCO3 25 ABG O2 Saturation 94 ABG Base Excess 0 FiO2 21 Sodium 139 Potassium 3.7 Chloride 105 Carbon Dioxide 25.6 Anion Gap 8 BUN 15 Creatinine 1.0 Estim Creat Clear Calc 78.4 eGFR > 60 BUN/Creatinine Ratio [address] Glu mg/dL 148 H Hemoglobin A1c 6.8 H Calculated Osmolality 286 Lactic Acid 1.0 Uric Acid 6.3 Calcium 9.2 Corrected Calcium 9.2 Magnesium 2.1 Total Bilirubin 0.7 Direct Bilirubin 0.3 AST 14 ALT 8 L Alkaline Phosphatase 99 C-Reactive Prot, Quant 6.9 H Total Protein 6.3 Albumin 4.0 Globulin 2.3 Albumin/Globulin Ratio 1.7 Procalcitonin 0.08 Synovial Source Elbow Synovial Color Yellow Synovial Appearance Cloudy Synovial WBC 00929 Synovial RBC 4000 Synov Polynuclear WBCs 88 Synov Mononuclear WBCs 12 Synovial Crystals Cancelled Ethyl Alcohol < 3.0 Misc Test Result Cancelled ABG Interpretation ABG results: 09/23/24 01:55 ABG pH 7.42 ABG pCO2 39 ABG pO2 62 L ABG HCO3 25 ABG O2 Saturation 94 ABG Base Excess 0 Quality Measures Quality Measures VTE prophylaxis Advance care planning discussed with:: patient Assessment & Plan Assessment Current Active Medications: Generic Name Dose Route Start Last Admin Trade Name Freq PRN Reason Stop Dose Admin Acetaminophen 650 mg 09/23/24 05:18 Acetaminophen 325 Mg Tablet PO 10/23/24 05:17 Q6H PRN Fever >100.4 or pain 1-3 Dextrose 25 ml 09/23/24 05:29 Dextrose 50%-Water Inj 50 Ml Syringe IV 10/23/24 05:28 Q15MIN PRN BG 50-70 responsive npo pt Dextrose 50 ml 09/23/24 05:29 Dextrose 50%-Water Inj 50 Ml Syringe IV 10/23/24 05:28 Q15MIN PRN BG <50 OR BG <70 & pt unresponsive Docusate Sodium 100 mg 09/23/24 05:18 Docusate Sod 100 Mg Capsule PO 10/23/24 05:17 QDAY PRN CONSTIPATION Protocol Enoxaparin Sodium 40 mg 09/23/24 09:00 09/23/24 10:12 Enoxaparin Sod Inj 40 Mg/0.4 Ml Syringe SC 10/07/24 08:59 Not Given QDAY ANA Folic Acid 1 mg 09/23/24 09:00 09/23/24 10:11 Folic Acid 1 Mg Tablet PO 10/23/24 08:59 Not Given QDAY ANA Glucagon 1 mg 09/23/24 05:29 Glucagon Inj 1 Mg Vial IM Q15MIN PRN BG <70, and no IV access Lactated Ringer's 1,000 mls @ 75 mls/hr 09/23/24 05:26 09/23/24 18:39 Lactated Ringers IV 09/24/24 08:05 75 mls/hr .[id number] ANA Administration Cefepime HCl 2 gm/ Sodium 50 mls @ 100 mls/hr 09/23/24 14:00 09/23/24 18:00 Chloride IV 09/30/24 13:59 Not Given Q8HR ANA Vancomycin/Sodium Chloride 750 mg in 150 mls @ 120 mls/hr 09/23/24 22:00 Vancomycin/Ns 750 Mg Ivpb IV 09/30/24 21:59 BID@1000,2200 [facility] Protocol Insulin Human Lispro 0 unit 09/23/24 06:00 09/23/24 17:59 Insulin Lispro (Admelog) 1 Unit/0.01 Ml Unit SC 10/23/24 05:59 Not Given Q6HR [facility] Protocol Ketorolac Tromethamine 30 mg 09/23/24 05:27 Ketorolac Inj 30 Mg/Ml Vial IVP 09/28/24 05:26 Q6HR PRN PAIN SCALE 4-10(Mod-Sev Lorazepam 0.5 mg 09/23/24 05:56 Lorazepam 0.5 Mg Tablet PO 09/28/24 05:55 Q4HR PRN CIWA Score 2-6 Lorazepam 1 mg 09/23/24 05:56 Lorazepam 0.5 Mg Tablet PO 09/28/24 05:55 Q4HR PRN CIWA SCORE 7-11 Lorazepam 2 mg 09/23/24 05:56 Lorazepam 0.5 Mg Tablet PO 09/28/24 05:55 Q4HR PRN CIWA SCORE 12-15 Pharmacy Consult 1 each 09/23/24 09:00 Vancomycin Pharmacy To Dose 1 Each Each IV 10/23/24 08:59 QDAY PRN PROTOCOL Sennosides 1 tab 09/23/24 05:18 Senna Tablet PO 10/23/24 05:17 QDAY PRN constipation Protocol Thiamine HCl 100 mg 09/23/24 09:00 09/23/24 10:11 Thiamine 100 Mg Tablet PO 10/23/24 08:59 Not Given QDAY ANA Plan 63 year-old male with past medical history of left elbow surgery 5 years ago, diabetes and polysubstance use disorder (methamphetamine, alcohol) presented for recurrent episodes of pain and swelling in the left elbow that has worsened in the past two weeks with intermittent fevers. Patient was admitted for concern of septic arthritis of the left elbow. #Septic arthritis, left elbow Patient presented with two weeks of left elbow swelling, pain, intermittent fevers. Patient is history of surgery to left elbow 5 years ago. Joint aspiration performed in ED, initial analysis showed [address] W[address]s. 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 No acute fracture. No cortical bone destruction. Large elbow effusion. Elbow x-ray: Advanced elbow osteoarthritis. No francisco cortical bone destruction. ESR 50, CRP 6.9 Plan: - Blood and aspirate cultures pending. - Cefepime 2 g IV every 8 hour (09/23- ). - Vancomycin pharmacy dosing (09/23- ). - IVF: LR at 75 mL/h x 2 .L - Orthopedic surgery consulted - appreciate recs. - Plan for irrigation and debridement with Dr. Sadiq batres. - Keep NPO for procedure. - Ketorolac for for pain management. - ID consulted - appreciate recs. - Trend ESR and CRP. #Diabetes Hemoglobin A1c 6.8. - ISS - Diabetic education - Outpatient follow-up #Methamphetamine abuse #Alcohol abuse Patient endorsed active meth use and alcohol use. Patient reported recent cut back to quarter bottle of hard liquor per day. - [facility]WA protocol - access services representative - Education regarding addiction services Health Maintenance: DVT prophylaxis: Lovenox GI prophylaxis: None Diet: N.p.o. pending procedure Lines: Peripheral IV Code status: Full code Case discussed with my senior resident Dr. Ziggy Marie and my attending Dr. Chicas. Michael Arias DO Attending Provider Attestation/Addendum I have examined the patient, reviewed labs and imaging findings, discussed the case with the resident(s), and reviewed entered orders. I agree with the plan of care as outlined in this note, with these additional summaries/recommendations: Patient seen at bedside. Patient was admitted overnight for septic arthritis of left elbow. Status post arthrocentesis in the emergency room which revealed septic arthritis. Cultures taken and follow-up results when available. Will continue broad-spectrum IV antibiotics for now. Orthopedics consulted with plans for irrigation and debridement. Patient reports he is currently homeless. Continue pain management. Low-dose IVF. Patient reports alcohol and substance abuse. WA on board for now. No evidence of withdrawal at this time. Continue insulin sliding scale for diabetes mellitus type 2. Target blood sugar of 140-180 while hospitalized. Patient updated on the plan and in agreement. All questions answered to satisfaction. Please see residents note for additional details and management. Dr. Juan Francisco MD
[2024-09-23] MEDS: CEFEPIME INJ 2 GM in SODIUM CHLORIDE 0.9% (Popper) 50 ML IV (21:20)
[2024-09-23] MEDS: VANCOMYCIN/NS 750 MG IVPB 750 MG/150 ML BAG 120 MG IV (21:51)
[2024-09-23] MEDS: INSULIN LISPRO (AdmeLOG) 1 UNIT/0.01 ML UNIT 3 UNIT SC (22:53)
[2024-09-24] VITALS: BP 113/65; PULSE 74; RESP 19; TEMP 36.3; O2SAT 91
[2024-09-24 01:14] LABS: Collection Type, Urine Clean Catch
[2024-09-24 01:18] LABS: Bilirubin,Urine Negative (Negative); Blood,Urine 1+ (Negative); Clarity,Urine Clear (Clear/Hazy); Color,Urine Yellow (Lt Yel-Yel); Culture Indicated,Urine Not Indicated; Glucose, Urine 3+ (Negative); Ketones,Urine Negative (Negative); Leukocyte Esterase,Urine Negative (Negative); Nitrite,Urine Negative (Negative); PH,Urine 6.0 (5.0-7.0); Protein,Urine Trace (Neg - Trace); RBC,Urine 13 /hpf (0-3); Specific Gravity,Urine 1.037 (1.001-1.035); Squamous Epithelial Cell,Urine < 1 /hpf (0-5); Urobilinogen,Urine Negative mg/dL (0.0-1.0); WBC,Urine 9 /hpf (0-5)
[2024-09-24 01:32] LABS: Amphetamine/Methamp Scrn,U Positive (Negative); Barbiturate Screen,Urine Negative (Negative); Benzodiazepines Screen,Urine Positive (Negative); Benzoylecgonine Screen, Ur Negative (Negative); Fentanyl Screen,Urine Positive (Negative); Opiate Screen,Urine Negative (Negative); THC Screen,Urine Negative (Negative)
[2024-09-24 04:00] VITALS: BP 119/72; PULSE 66; RESP 19; TEMP 36; O2SAT 93
[2024-09-24] MEDS: CEFEPIME INJ 2 GM in SODIUM CHLORIDE 0.9% (Popper) 50 ML IV (05:01)
[2024-09-24 06:04] LABS: Basophils # (Auto) 0.0 Thou/mm3 (0.0-0.2); Basophils % (Auto) 0 % (0-2.5); Eosinophils # (Auto) 0.0 Thou/mm3 (0.0-0.5); Eosinophils % (Auto) 0 % (0-10); Hematocrit 37.7 % (41.0-53.0); Hemoglobin 12.5 g/dL (13.5-16.0); Immature Granulocytes Auto 0.03 Thou/mm3 (0.00-0.00); Lymphocytes # (Auto) 1.3 Thou/mm3 (1.0-4.8); Lymphocytes % (Auto) 12 % (10-50); Mean Corpuscular HGB Conc 33.2 g/dl (31.0-37.0); Mean Corpuscular Hemoglobin 31.0 pg (25.0-35.0); Mean Corpuscular Volume 94 fL (80-100); Monocytes # (Auto) 0.8 Thou/mm3 (0.0-0.8); Monocytes % (Auto) 7 % (0-12); Neutrophils # (Auto) 8.7 Thou/mm3 (1.8-7.7); Neutrophils % (Auto) 80 % (37-80); Nucleated Red Blood Cell # 0.00 Thou/mm3 (0.00-0.00); Nucleated Red Blood Cell % 0 /100 WBC (0); Platelet Count 181 Thou/mm3 (140-440); RDW Standard Deviation 45.4 fL (35.1-43.9); Red Blood Count 4.03 Miln/mm3 (4.50-5.90); White Blood Count 10.8 Thou/mm3 (3.8-10.6)
[2024-09-24 06:15] LABS: INR 1.0 (0.9-1.3); Partial Thromboplastin Time 27.3 Seconds (22.0-36.0); Prothrombin Time 11.0 Seconds (9.0-12.2)
[2024-09-24 06:44] LABS: Alanine Aminotransferase < 7 U/L (10-49); Albumin, Serum 3.2 gm/dL (3.4-4.8); Albumin/Globulin Ratio 1.6 (1.2-2.2); Alkaline Phosphatase 69 U/L (46-116); Anion Gap 8 (7-16); Aspartate Amino Transferase < 10 U/L (0-34); BUN/Creatinine Ratio 20 Ratio (12-20); Bilirubin,Total 0.3 mg/dL (0.3-1.2); Blood Urea Nitrogen 16 mg/dL (9-23); Calcium 9.0 mg/dL (8.3-10.6); Calcium (Corrected) 9.6 mg/dL (8.5-10.1); Carbon Dioxide 24.3 mMol/L (20.0-31.0); Chloride 106 mMol/L (98-107); Creatinine (Component) 0.8 mg/dL (0.6-1.3); Estimated Creatinine Clearance 95.1 mL/min (>60); Globulin 2.0 gm/dL (2.3-3.5); Glucose 169 mg/dL (74-106); Magnesium 2.0 mg/dL (1.6-2.6); Osmolality,Calculated 280 (275-295); Phosphorous 3.2 mg/dL (2.4-5.1); Potassium 4.2 mMol/L (3.4-5.1); Sodium 138 mMol/L (136-145); Total Protein 5.2 gm/dL (5.7-8.2); eGFR > 60 See Note
[2024-09-24] MEDS: INSULIN LISPRO (AdmeLOG) 1 UNIT/0.01 ML UNIT SC (07:43)
[2024-09-24 07:51] VITALS: BP 127/70; PULSE 90; RESP 17; TEMP 36.7; O2SAT 94
--- NOTE | 2024-09-24 07:58 | ESPR_ITS ---
<Statement entered by Walter Youssef MD - 09/24/24 14:25> Senior Resident Attestation: I supervised/discussed management plan with medical student Marco A, and was involved in the care of this patient. I personally saw and examined the patient and discussed the assessment and plan with the entire medicine team, including my attending. I agree with the assessment and plan as documented. No acute overnight events reported. Patient reports no new complaints, his pain is well-controlled. Pending ID recommendations for outpatient management of osteomyelitis. Patient's care was discussed with attending physician, Dr. Chicas. Walter Youssef MD PGY-3. Documentation for date of: 09/24/24 Subjective Subjective Interval history: pt seen at bedside today and is alert and oriented x4. Pt affirms that his blood sugar has been out of control and he currently denies taking any medication for his diabetes. He denies having any abnormal discharge or blood from the procedure site. Pt denies having any abnormal swelling, warmth, or pressure sensation at the site of his procedure. He states that his pain is well controlled. He states that he does not have any other questions or concerns at this time. Exam Vital Signs Temp Pulse Resp BP Pulse Ox O2 Del Method O2 Flow Rate 98.0 F 90 17 127/70 94 L Room Air 4 09/24/24 07:51 09/24/24 07:51 09/24/24 07:51 09/24/24 07:51 09/24/24 07:51 09/24/24 07:51 09/23/24 17:06 Narrative Exam General: Awake and in no acute distress. Conversational and non-toxic appearing. HEENT: Normocephalic, atraumatic. Heart: Regular rate and rhythm, no murmurs. Lungs: Clear to auscultation with no wheezing or crackles. Abdomen: Soft, nondistended, nontender. No guarding or rebound tenderness. Neurologic: Alert and oriented x3, no gross neurological deficit, and patient able to move all 4 extremities. MSK: LUE range of motion limited by pain. Left elbow swollen and tender. Full range of motion in other three extremities. Skin: No rash or ecchymoses. Objective Objective Narrative Objective Narrative: Vital signs steady and stable. pt has clear breath sounds bilaterally and cardiac exam yields regular rate and rhythm w/o murmur. Abdomen is soft and nondistended. Pt L Upper Extremity is threading machine tender to palpation. Labs 09/24/24 05:20 09/24/24 05:20 Labs: Laboratory Results - last 24 hr 09/23/24 09/23/24 09/24/24 01:03 03:30 05:20 WBC 10.8 H RBC 4.03 L Hgb 12.5 L D Hct 37.7 L MCV 94 MCH 31.0 MCHC 33.2 RDW Std Deviation 45.4 H Plt Count 181 Neut % (Auto) 80 Lymph % (Auto) 12 [place] % (Auto) 7 Eos % (Auto) 0 Baso % (Auto) 0 Neut # (Auto) 8.7 H Lymph # (Auto) 1.3 [place] # (Auto) 0.8 Eos # (Auto) 0.0 Baso # (Auto) 0.0 Immature Gran # (Auto) 0.03 H Absolute Nucleated RBC 0.00 Immature Gran % 0 Nucleated RBC % 0 PT 11.0 INR 1.0 APTT 27.3 Sodium 138 Potassium 4.2 D Chloride 106 Carbon Dioxide 24.3 Anion Gap 8 BUN 16 Creatinine 0.8 Estim Creat Clear Calc 95.1 eGFR > 60 BUN/Creatinine Ratio 20 Glucose 169 H D Calculated Osmolality 280 Calcium 9.0 Corrected Calcium 9.6 Phosphorus 3.2 Magnesium 2.0 Total Bilirubin 0.3 AST < 10 ALT < 7 L Alkaline Phosphatase 69 D Total Protein 5.2 L Albumin 3.2 L D Globulin 2.0 L Albumin/Globulin Ratio 1.6 Ur Collection Type Clean Catch Urine Color Yellow Urine Clarity Clear Urine pH 6.0 Ur Specific [place] 1.037 H Urine Protein Trace Urine Glucose (UA) 3+ A Urine Ketones Negative Urine Blood 1+ A Urine Nitrite Negative Urine Bilirubin Negative Urine Urobilinogen (Auto) Negative Ur Leukocyte Esterase Negative Urine RBC 13 H Urine WBC 9 H Ur Squamous Epith Cells < 1 Urine Bacteria None Ur Culture Indicated? Not Indicated Synovial Crystals Cancelled Urine Opiates Screen Negative Urine Fentanyl Screen Positive A Ur Barbiturates Screen Negative U Amphetamin/Meth Scrn Positive A U Benzodiazepines Scrn Positive A U Cocaine Metab Screen Negative U Marijuana (THC) Screen Negative Misc Test Result Cancelled ABG Interpretation ABG results: 09/23/24 01:55 ABG pH 7.42 ABG pCO2 39 ABG pO2 62 L ABG HCO3 25 ABG O2 Saturation 94 ABG Base Excess 0 Quality Measures Quality Measures VTE prophylaxis Advance care planning discussed with:: patient Assessment & Plan Assessment Current Active Medications: Generic Name Dose Route Start Last Admin Trade Name Freq PRN Reason Stop Dose Admin Acetaminophen 650 mg 09/23/24 05:18 Acetaminophen 325 Mg Tablet PO 10/23/24 05:17 Q6H PRN Fever >100.4 or pain 1-3 Dextrose 25 ml 09/23/24 05:29 Dextrose 50%-Water Inj 50 Ml Syringe IV 10/23/24 05:28 Q15MIN PRN BG 50-70 responsive npo pt Dextrose 50 ml 09/23/24 05:29 Dextrose 50%-Water Inj 50 Ml Syringe IV 10/23/24 05:28 Q15MIN PRN BG <50 OR BG <70 & pt unresponsive Docusate Sodium 100 mg 09/23/24 05:18 Docusate Sod 100 Mg Capsule PO 10/23/24 05:17 QDAY PRN CONSTIPATION Protocol Enoxaparin Sodium 40 mg 09/23/24 09:00 09/23/24 10:12 Enoxaparin Sod Inj 40 Mg/0.4 Ml Syringe SC 10/07/24 08:59 Not Given QDAY ANA Folic Acid 1 mg 09/23/24 09:00 09/23/24 10:11 Folic Acid 1 Mg Tablet PO 10/23/24 08:59 Not Given QDAY ANA Glucagon 1 mg 09/23/24 05:29 Glucagon Inj 1 Mg Vial IM Q15MIN PRN BG <70, and no IV access Lactated Ringer's 1,000 mls @ 75 mls/hr 09/23/24 05:26 09/23/24 18:39 Lactated Ringers IV 09/24/24 08:05 75 mls/hr .[id number] ANA Administration Cefepime HCl 2 gm/ Sodium 50 mls @ 100 mls/hr 09/23/24 14:00 09/24/24 05:01 Chloride IV 09/30/24 13:59 100 mls/hr Q8HR ANA Administration Vancomycin/Sodium Chloride 750 mg in 150 mls @ 120 mls/hr 09/23/24 22:00 09/23/24 23:06 Vancomycin/Ns 750 Mg Ivpb IV 09/30/24 21:59 Infused BID@1000,2200 ANA Infusion Protocol Insulin Human Lispro 0 unit 09/23/24 21:37 09/24/24 07:43 Insulin Lispro (Admelog) 1 Unit/0.01 Ml Unit SC 10/23/24 21:34 2 unit ACHS [facility]–1983 Administration Protocol Ketorolac Tromethamine 30 mg 09/23/24 05:27 Ketorolac Inj 30 Mg/Ml Vial IVP 09/28/24 05:26 Q6HR PRN PAIN SCALE 4-10(Mod-Sev Lorazepam 0.5 mg 09/23/24 05:56 Lorazepam 0.5 Mg Tablet PO 09/28/24 05:55 Q4HR PRN CIWA Score 2-6 Lorazepam 1 mg 09/23/24 05:56 Lorazepam 0.5 Mg Tablet PO 09/28/24 05:55 Q4HR PRN CIWA SCORE 7-11 Lorazepam 2 mg 09/23/24 05:56 Lorazepam 0.5 Mg Tablet PO 09/28/24 05:55 Q4HR PRN CIWA SCORE 12-15 Pharmacy Consult 1 each 09/23/24 09:00 Vancomycin Pharmacy To Dose 1 Each Each IV 10/23/24 08:59 QDAY PRN PROTOCOL Sennosides 1 tab 09/23/24 05:18 Senna Tablet PO 10/23/24 05:17 QDAY PRN constipation Protocol Thiamine HCl 100 mg 09/23/24 09:00 09/23/24 10:11 Thiamine 100 Mg Tablet PO 10/23/24 08:59 Not Given QDAY ANA Plan 63 year-old male with past medical history of left elbow surgery 5 years ago, diabetes and polysubstance use disorder (methamphetamine, alcohol) presented for recurrent episodes of pain and swelling in the left elbow that has worsened in the past two weeks with intermittent fevers. Patient was admitted for concern of septic arthritis of the left elbow. #Septic arthritis, left elbow Patient presented with two weeks of left elbow swelling, pain, intermittent fevers. Patient is history of surgery to left elbow 5 years ago. Joint aspiration performed in ED, initial analysis showed 65K WBCs. Gram stain and preliminary culture of wound is negative for growth. Pending final results at 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 No acute fracture. No cortical bone destruction. Large elbow effusion. Elbow x-ray: Advanced elbow osteoarthritis. No francisco cortical bone destruction. ESR 50, CRP 6.9 Orthopedic surgery proceeded with irrigation with debridement on 09/23- will F/U for recs. Plan: - Blood and aspirate cultures pending. - Cefepime 2 g IV every 8 hour (09/23-09/24). - Ceftriaxone 2g IV QD (09/24- ). - Vancomycin pharmacy dosing (09/23- ). - Ketorolac for for pain management. - ID consulted - appreciate recs. - Trend ESR and CRP. #Diabetes mellitus type 2. Hemoglobin A1c 6.8. Most recent Bedside blood glucose is 212. Plan: - Sliding scale insulin initiated. - hypoglycemia protocol in place. - Diabetic education. - Outpatient follow-up. #Methamphetamine abuse #Alcohol abuse #Benzodiazepine use Patient endorsed active meth use and alcohol use. Urine tox screen on 09/23 also yields positive result for benzodiazepine metabolites present within urine Patient reported recent cut back to quarter bottle of hard liquor per day. Plan: - CIWA protocol - Lorazepam PRN ordered to be given if pt demonstrates signs and symptoms of benzodiazepine withdrawal - support services tech - Education regarding addiction services FEN: DVT prophylaxis: GI prophylaxis: Dispo: medsurg. CODE STATUS: FULL CODE. Plan of care discussed with PGY3 senior resident Walter Youssef and attending Dr. Chicas. Marco A Ramirez MS. Disclaimer: This note was dictated by speech recognition. Minor errors in sugar cane planter machine operator may be present due to voice recognition software. Attending Provider Attestation/Addendum I have examined the patient, reviewed labs and imaging findings, discussed the case with the resident(s), and reviewed entered orders. I agree with the plan of care as outlined in this note, with these additional summaries/recommendations: Patient seen at bedside. No acute overnight events. Patient has no concerns today other than he is concerned about his dog who is currently left unattended. Consult social services aide for resources. Patient was admitted for septic arthritis of left elbow. Status post arthrocentesis in the emergency room which revealed septic arthritis. Cultures taken and follow-up results when available. Will continue broad-spectrum IV antibiotics for now. Infectious disease consulted. Orthopedics following and patient is status post left elbow irrigation and debridement with purulence noted. Patient reports he is currently homeless. Continue pain management.Patient reports alcohol and substance abuse. CIWA on board for now. No evidence of withdrawal at this time. Continue insulin sliding scale for diabetes mellitus type 2. Target blood sugar of 140-180 while hospitalized. Patient updated on the plan and in agreement. All questions answered to satisfaction. Please see residents note for additional details and management. Dr. Juan Francisco MD
[2024-09-24] MEDS: THIAMINE 100 MG TABLET PO (08:30)
[2024-09-24] MEDS: ENOXAPARIN SOD INJ 40 MG/0.4 ML SYRINGE SC (08:30)
[2024-09-24] MEDS: FOLIC ACID 1 MG TABLET PO (08:30)
--- NOTE | 2024-09-24 09:53 | ESPR_ITS ---
Subjective Subjective Interval history: asked to see, dm (controlled) with amox allergy ever cephs so far. changed by primary to cefepime for reasons that are unclear. also on vanco. gram stain and cx neg so far Exam Vital Signs Temp Pulse Resp BP Pulse Ox O2 Del Method O2 Flow Rate 98.0 F 90 17 127/70 94 L Room Air 4 09/24/24 07:51 09/24/24 07:51 09/24/24 07:51 09/24/24 07:51 09/24/24 07:51 09/24/24 07:51 09/23/24 17:06 Objective - Internal Medicine Labs 09/24/24 05:20 09/24/24 05:20 Labs: Laboratory Results - last 24 hr 09/23/24 09/23/24 09/24/24 01:03 03:30 05:20 WBC 10.8 H RBC 4.03 L Hgb 12.5 L D Hct 37.7 L MCV 94 MCH 31.0 MCHC 33.2 RDW Std Deviation 45.4 H Plt Count 181 Neut % (Auto) 80 Lymph % (Auto) 12 [place] % (Auto) 7 Eos % (Auto) 0 Baso % (Auto) 0 Neut # (Auto) 8.7 H Lymph # (Auto) 1.3 [place] # (Auto) 0.8 Eos # (Auto) 0.0 Baso # (Auto) 0.0 Immature Gran # (Auto) 0.03 H Absolute Nucleated RBC 0.00 Immature Gran % 0 Nucleated RBC % 0 PT 11.0 INR 1.0 APTT 27.3 Sodium 138 Potassium 4.2 D Chloride 106 Carbon Dioxide 24.3 Anion Gap 8 BUN 16 Creatinine 0.8 Estim Creat Clear Calc 95.1 eGFR > 60 BUN/Creatinine Ratio 20 Glucose 169 H D Calculated Osmolality 280 Calcium 9.0 Corrected Calcium 9.6 Phosphorus 3.2 Magnesium 2.0 Total Bilirubin 0.3 AST < 10 ALT < 7 L Alkaline Phosphatase 69 D Total Protein 5.2 L Albumin 3.2 L D Globulin 2.0 L Albumin/Globulin Ratio 1.6 Ur Collection Type Clean Catch Urine Color Yellow Urine Clarity Clear Urine pH 6.0 Ur Specific [place] 1.037 H Urine Protein Trace Urine Glucose (UA) 3+ A Urine Ketones Negative Urine Blood 1+ A Urine Nitrite Negative Urine Bilirubin Negative Urine Urobilinogen (Auto) Negative Ur Leukocyte Esterase Negative Urine RBC 13 H Urine WBC 9 H Ur Squamous Epith Cells < 1 Urine Bacteria None Ur Culture Indicated? Not Indicated Synovial Crystals Cancelled Urine Opiates Screen Negative Urine Fentanyl Screen Positive A Ur Barbiturates Screen Negative U Amphetamin/Meth Scrn Positive A U Benzodiazepines Scrn Positive A U Cocaine Metab Screen Negative U Marijuana (THC) Screen Negative Misc Test Result Cancelled ABG Interpretation ABG results: 09/23/24 01:55 ABG pH 7.42 ABG pCO2 39 ABG pO2 62 L ABG HCO3 25 ABG O2 Saturation 94 ABG Base Excess 0 Assessment & Plan A&P Narrative septic arthritis gram stain and cx neg so far. no crystal analysis noted. and bc neg too. dm II (controlled), a1c <7 changed cefepime back to rocephin and left vanco on and ordered some labs for thursday am. will see thursday. Time Spent With Patient Time: Total time spent is greater than 50% in coordination of care (as documented) at patient's floor/unit and/or counseling patient:
[2024-09-24] MEDS: VANCOMYCIN/NS 750 MG IVPB 750 MG/150 ML BAG 120 MG IV ×2 (10:16→23:05)
[2024-09-24] MEDS: KETOROLAC INJ 30 MG/ML VIAL IVP (10:17)
--- NOTE | 2024-09-24 10:39 | PC.SS ---
Addendum entered by Hina Antunez 09/24/24 11:39: 1100-Attending provider asked ASW to f/u with pts pet dog as he is worried it is not being taken care of properly by his friend. Original Note: 1039-Pt is a 63 yo male who was admitted on 09/23 for increased pain and swelling and intermittent fevers, admitted for septic arthritis. Per this mornings rounding meeting, pt will be staying and at this time, there is no d/c date.
[2024-09-24 12:00] VITALS: BP 120/67; PULSE 65; RESP 15; TEMP 36.8; O2SAT 95
[2024-09-24] MEDS: cefTRIAXone/D5w 2gm 2 GM/50 ML BAG IV (13:42)
[2024-09-24 15:30] VITALS: BP 128/76; PULSE 68; RESP 16; TEMP 36.2; O2SAT 97
[2024-09-24 20:00] VITALS: BP 119/86; PULSE 64; RESP 16; TEMP 36.2; O2SAT 94
[2024-09-24 22:59] LABS: Vancomycin,Trough 9.6 mcg/mL (5.0-10.0)
[2024-09-25] VITALS: BP 111/60; PULSE 65; RESP 16; TEMP 36.1; O2SAT 93
[2024-09-25 04:00] VITALS: BP 137/76; PULSE 58; RESP 16; TEMP 36.4; O2SAT 99
[2024-09-25] MEDS: ACETAMINOPHEN 325 MG TABLET 650 MG PO (04:08)
[2024-09-25 06:18] LABS: Basophils # (Auto) 0.0 Thou/mm3 (0.0-0.2); Basophils % (Auto) 1 % (0-2.5); Eosinophils # (Auto) 0.1 Thou/mm3 (0.0-0.5); Eosinophils % (Auto) 1 % (0-10); Hematocrit 39.8 % (41.0-53.0); Hemoglobin 13.1 g/dL (13.5-16.0); Immature Granulocytes Auto 0.01 Thou/mm3 (0.00-0.00); Lymphocytes # (Auto) 2.3 Thou/mm3 (1.0-4.8); Lymphocytes % (Auto) 31 % (10-50); Mean Corpuscular HGB Conc 32.9 g/dl (31.0-37.0); Mean Corpuscular Hemoglobin 31.0 pg (25.0-35.0); Mean Corpuscular Volume 94 fL (80-100); Monocytes # (Auto) 0.7 Thou/mm3 (0.0-0.8); Monocytes % (Auto) 9 % (0-12); Neutrophils # (Auto) 4.3 Thou/mm3 (1.8-7.7); Neutrophils % (Auto) 58 % (37-80); Nucleated Red Blood Cell # 0.00 Thou/mm3 (0.00-0.00); Nucleated Red Blood Cell % 0 /100 WBC (0); Platelet Count 200 Thou/mm3 (140-440); RDW Standard Deviation 46.6 fL (35.1-43.9); Red Blood Count 4.23 Miln/mm3 (4.50-5.90); White Blood Count 7.3 Thou/mm3 (3.8-10.6)
[2024-09-25 07:20] LABS: Alanine Aminotransferase < 7 U/L (10-49); Albumin, Serum 3.3 gm/dL (3.4-4.8); Albumin/Globulin Ratio 1.6 (1.2-2.2); Alkaline Phosphatase 73 U/L (46-116); Anion Gap 8 (7-16); Aspartate Amino Transferase 13 U/L (0-34); BUN/Creatinine Ratio 13 Ratio (12-20); Bilirubin,Total 0.3 mg/dL (0.3-1.2); Blood Urea Nitrogen 12 mg/dL (9-23); Calcium 9.0 mg/dL (8.3-10.6); Calcium (Corrected) 9.6 mg/dL (8.5-10.1); Carbon Dioxide 27.1 mMol/L (20.0-31.0); Chloride 104 mMol/L (98-107); Creatinine (Component) 0.9 mg/dL (0.6-1.3); Estimated Creatinine Clearance 84.5 mL/min (>60); Globulin 2.1 gm/dL (2.3-3.5); Glucose 119 mg/dL (74-106); Magnesium 1.6 mg/dL (1.6-2.6); Osmolality,Calculated 278 (275-295); Phosphorous 2.2 mg/dL (2.4-5.1); Potassium 4.6 mMol/L (3.4-5.1); Sodium 139 mMol/L (136-145); Total Protein 5.4 gm/dL (5.7-8.2); eGFR > 60 See Note
[2024-09-25 07:59] VITALS: BP 126/74; PULSE 59; RESP 17; TEMP 36.6; O2SAT 92
[2024-09-25] MEDS: ENOXAPARIN SOD INJ 40 MG/0.4 ML SYRINGE SC (08:00)
[2024-09-25] MEDS: THIAMINE 100 MG TABLET PO (08:00)
[2024-09-25] MEDS: FOLIC ACID 1 MG TABLET PO (08:00)
[2024-09-25] MEDS: cefTRIAXone/D5w 2gm 2 GM/50 ML BAG IV (08:00)
[2024-09-25] MEDS: VANCOMYCIN/WATER 1GM IVPB 200 ML IV (10:08)
--- NOTE | 2024-09-25 10:51 | PD.RESPRO ---
Documentation for date of: 09/25/24 Subjective Subjective Interval history: p Exam Vital Signs Temp Pulse Resp BP Pulse Ox O2 Del Method O2 Flow Rate 97.8 F 59 L 17 126/74 92 L Room Air 4 09/25/24 07:59 09/25/24 07:59 09/25/24 07:59 09/25/24 07:59 09/25/24 07:59 09/25/24 07:59 09/23/24 17:06 Objective Labs 09/25/24 04:30 09/25/24 04:30 Labs: Laboratory Results - last 24 hr 09/24/24 09/25/24 20:45 04:30 WBC 7.3 RBC 4.23 L Hgb 13.1 L Hct 39.8 L MCV 94 MCH 31.0 MCHC 32.9 RDW Std Deviation 46.6 H Plt Count 200 Neut % (Auto) 58 Lymph % (Auto) 31 [place] % (Auto) 9 Eos % (Auto) 1 Baso % (Auto) 1 Neut # (Auto) 4.3 Lymph # (Auto) 2.3 [place] # (Auto) 0.7 Eos # (Auto) 0.1 Baso # (Auto) 0.0 Immature Gran # (Auto) 0.01 H Absolute Nucleated RBC 0.00 Immature Gran % 0 Nucleated RBC % 0 Sodium 139 Potassium 4.6 Chloride 104 Carbon Dioxide 27.1 Anion Gap 8 BUN 12 Creatinine 0.9 Estim Creat Clear Calc 84.5 eGFR > 60 BUN/Creatinine Ratio 13 Glucose 119 H D Calculated Osmolality 278 Calcium 9.0 Corrected Calcium 9.6 Phosphorus 2.2 L Magnesium 1.6 Total Bilirubin 0.3 AST 13 ALT < 7 L Alkaline Phosphatase 73 Total Protein 5.4 L Albumin 3.3 L Globulin 2.1 L Albumin/Globulin Ratio 1.6 Vancomycin Trough 9.6 ABG Interpretation ABG results: 09/23/24 01:55 ABG pH 7.42 ABG pCO2 39 ABG pO2 62 L ABG HCO3 25 ABG O2 Saturation 94 ABG Base Excess 0 Quality Measures Quality Measures VTE prophylaxis Assessment & Plan Assessment Current Active Medications: Generic Name Dose Route Start Last Admin Trade Name Freq PRN Reason Stop Dose Admin Acetaminophen 650 mg 09/23/24 05:18 09/25/24 04:08 Acetaminophen 325 Mg Tablet PO 10/23/24 05:17 650 mg Q6H PRN Administration Fever >100.4 or pain 1-3 Dextrose 25 ml 09/23/24 05:29 Dextrose 50%-Water Inj 50 Ml Syringe IV 10/23/24 05:28 Q15MIN PRN BG 50-70 responsive npo pt Dextrose 50 ml 09/23/24 05:29 Dextrose 50%-Water Inj 50 Ml Syringe IV 10/23/24 05:28 Q15MIN PRN BG <50 OR BG <70 & pt unresponsive Docusate Sodium 100 mg 09/23/24 05:18 Docusate Sod 100 Mg Capsule PO 10/23/24 05:17 QDAY PRN CONSTIPATION Protocol Enoxaparin Sodium 40 mg 09/23/24 09:00 09/25/24 08:00 Enoxaparin Sod Inj 40 Mg/0.4 Ml Syringe SC 10/07/24 08:59 40 mg QDAY ANA Administration Folic Acid 1 mg 09/23/24 09:00 09/25/24 08:00 Folic Acid 1 Mg Tablet PO 10/23/24 08:59 1 mg QDAY ANA Administration Glucagon 1 mg 09/23/24 05:29 Glucagon Inj 1 Mg Vial IM Q15MIN PRN BG <70, and no IV access Ceftriaxone Sodium/Dextrose 2 gm in 50 mls @ 100 mls/hr 09/24/24 10:00 09/25/24 08:00 Rocephin/D5w 2gm IV 10/01/24 09:59 100 mls/hr QDAY ANA Administration Vancomycin HCl 200 mls @ 120 mls/hr 09/25/24 10:00 09/25/24 10:08 Vancomycin/Water 1gm Ivpb IV 10/02/24 09:59 120 mls/hr BID@1000,2200 ANA Administration Protocol Insulin Human Lispro 0 unit 09/23/24 21:37 09/25/24 07:30 Insulin Lispro (Admelog) 1 Unit/0.01 Ml Unit SC 10/23/24 21:34 Not Given ACHS ANA Protocol Ketorolac Tromethamine 30 mg 09/23/24 05:27 09/24/24 10:17 Ketorolac Inj 30 Mg/Ml Vial IVP 09/28/24 05:26 30 mg Q6HR PRN Administration PAIN SCALE 4-10(Mod-Sev Lorazepam 0.5 mg 09/23/24 05:56 Lorazepam 0.5 Mg Tablet PO 09/28/24 05:55 Q4HR PRN CIWA Score 2-6 Lorazepam 1 mg 09/23/24 05:56 Lorazepam 0.5 Mg Tablet PO 09/28/24 05:55 Q4HR PRN CIWA SCORE 7-11 Lorazepam 2 mg 09/23/24 05:56 Lorazepam 0.5 Mg Tablet PO 09/28/24 05:55 Q4HR PRN CIWA SCORE 12-15 Pharmacy Consult 1 each 09/23/24 09:00 Vancomycin Pharmacy To Dose 1 Each Each IV 10/23/24 08:59 QDAY PRN PROTOCOL Sennosides 1 tab 09/23/24 05:18 Senna Tablet PO 10/23/24 05:17 QDAY PRN constipation Protocol Thiamine HCl 100 mg 09/23/24 09:00 09/25/24 08:00 Thiamine 100 Mg Tablet PO 10/23/24 08:59 100 mg QDAY ANA Administration
--- NOTE | 2024-09-25 12:15 | ESDS_ITS ---
<Statement entered by Joyce Alicea DO - 09/25/24 16:01> I, Joyce Alicea DO, attest that I was physically present for the kearns portions of the service and evaluated the patient with the resident and I reviewed and discussed the case with the resident and agree with the resident's findings and plans of care as documented above <Statement entered by Matthew Marie MD - 09/25/24 15:58> Patient was examined and case was reviewed with team including attending physician. Note reviewed, I agree with most of its contents and agree with the patient's care as documented by Dr. Arias The patient has decided to sign out against medical advice (AMA) after being explained the risks & benefits of leaving before medical clearance/discharge. Patient was explained that he would most likely need SNF for IV Abx therapy for his septic arthritis, however patient was still adamant about leaving AMA. The patient had the opportunity to ask questions about their condition which were answered to their satisfaction; the patient is aware that they may return for further care at any time as needed. Matthew Marie MD PGY-2 Planned Discharge Date 09/25/24 DS: Providers Provider Date of admission: 09/23/24 06:23 Primary care physician: Physician No Primary/Family Admitting Provider: Dieudonne Bland MD Attending Provider on Admission: Kevin Chicas MD Consults: 09/23/24 04:58 Consult to Orthopedic Stat Comment: Septic L Elbow Consulting Provider: Leonidas Babcock 09/23/24 05:29 Referral Registered Dietitian Routine Comment: 09/23/24 10:52 Consult to Infectious Diseases Stat Comment: Septic arthritis Consulting Provider: Cecil Villarreal 09/23/24 15:19 [facility] Referral - Nutrition Routine Comment: Positive screening for nutrition needs. [facility] Referral - Safety Routine Comment: Positive screening for safety needs. [facility] Referral - Transportation Routine Comment: Positive screening for transportation needs. 09/23/24 16:46 Referral Physical Therapy Routine Comment: Physician Instructions: Attending Provider on DC: Joyce Alicea DO Discharging Provider: Michael Arias DO Anticipated date of discharge: 09/25/24 DS: Diagnosis Problem List Completed Was Problem List Reviewed/Reconciled?: Yes Hospital Course Hospital Course Hospital course: A 63-year-old male with a past medical history of left elbow surgery (5 years ago), diabetes mellitus, and polysubstance use disorder (currently using methamphetamine and alcohol), who is experiencing homelessness, presented with recurrent pain and swelling of the left elbow, which had worsened over the past two weeks. He also reported intermittent fevers. On examination, the left elbow was warm, swollen, and had limited range of motion. Synovial fluid analysis revealed 65,000 WBCs with a negative Gram stain. In the emergency department, he was given IV fluids and empirically started on ceftriaxone. Imaging (CT and X- ray) of the left elbow demonstrated advanced osteoarthritis, a large joint effusion, and surrounding soft tissue edema without evidence of acute fracture or cortical bone destruction. He was admitted for concern of septic arthritis of the left elbow. Following admission, ceftriaxone was discontinued and patient was started on IV vancomycin and cefepime. Patient underwent surgical irrigation and debridement of the left elbow, where purulent drainage was noted intraoperatively. Postoperatively, his pain was well controlled, and he remained afebrile. Infectious Disease was consulted, cefepime was changed to ceftriaxone, and vancomycin was continued. Blood culture and synovial fluid gram stain were negative. Wound and anaerobic cultures are pending. Diabetes was managed with a sliding-scale insulin regimen. Due to his alcohol use history, [facility] protocol was initiated for alcohol withdrawal monitoring, though he did not develop withdrawal symptoms. 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 He was counseled extensively regarding: - The need for a PICC line to complete IV antibiotic therapy. - The importance of completing treatment to avoid recurrent infection, joint damage, and potential progression to sepsis. - Risks of early discharge, including worsening infection, possible loss of limb, and . - Despite understanding these risks & benefit, the patient elected to leave AMA before completing the recommended inpatient treatment. The patient had the opportunity to ask questions about their condition which were answered to their satisfaction. The patient is aware that they may return for further care at any time as needed. Patient was alert and oriented x4 with ability to demonstrate understanding of the above and signed the AMA form. Diagnoses: #Septic arthritis , left elbow #Type 2 diabetes mellitus #Methamphetamine abuse #Alcohol use disorder #Benzodiazepine use Case discussed with my senior resident Dr. Ziggy Marie and my attending Dr. Alicea. Michael Arias, DO Status at Discharge Overall status at discharge: patient is back to baseline Time Spent with Patient Time attestation: Total time spent providing and/or coordinating discharge services: Time spent: Greater than 30 minutes Exam Vital Signs Temp Pulse Resp BP Pulse Ox O2 Del Method O2 Flow Rate 97.8 F 59 L 17 126/74 92 L Room Air 4 09/25/24 07:59 09/25/24 07:59 09/25/24 07:59 09/25/24 07:59 09/25/24 07:59 09/25/24 07:59 09/23/24 17:06 Narrative Exam Physical Exam General: Awake and in no acute distress. Conversational and non-toxic appearing. HEENT: Normocephalic, atraumatic. Heart: Regular rate and rhythm, no murmurs. Lungs: Clear to auscultation with no wheezing or crackles. Abdomen: Soft, nondistended, nontender. No guarding or rebound tenderness. Neurologic: Alert and oriented x3, no gross neurological deficit, and patient able to move all 4 extremities. MSK: LUE range of motion limited by pain. Left elbow swollen and tender. Full range of motion in other three extremities. Skin: No rash or ecchymoses. Discharge Plan Plan Patient Disposition: Left Against Medical Advice Prescriptions/Referrals Prescriptions/Med Rec: No Action No Known Home Medications Referrals: No Primary/Family,Physician [Primary Care Provider] - Patient/Caregiver Discharge Instructions Print Language: Romanian Quality Discharge Quality Measures none
== END 2024-09-25 11:36 | disposition left against medical advice (07) | DRG 511 ==
LOC: SERX 09-23 06:19 → SERHOLD 09-23 06:33 → S3NX 09-23 14:30
PROVIDERS: Orthopaedic Surgery Adult Reconstructive Orthopaedic Surgery; Admitting Provider Student in an Organized Health Care Education/Training Program; Emergency Provider Emergency Medicine; Visit Provider Student in an Organized Health Care Education/Training Program
PROC: 0RBM0ZZ Excision of Left Elbow Joint, Open Approach (ICD-10-PCS; principal; 2024-09-23 16:00)
DX: M00.9 Pyogenic arthritis, unspecified (principal); Z59.00 Homelessness unspecified; M25.422 Effusion, left elbow; F15.10 Other stimulant abuse, uncomplicated; F17.210 Nicotine dependence, cigarettes, uncomplicated; F10.10 Alcohol abuse, uncomplicated; E11.65 Type 2 diabetes mellitus with hyperglycemia; F17.200 Nicotine dependence, unspecified, uncomplicated; M19.022 Primary osteoarthritis, left elbow; Z96.651 Presence of right artificial knee joint; Z79.4 Long term (current) use of insulin
CPT/HCPCS: 36415; 36600; 73080; 73201; 80053; 80202; 80307; 80320; 81001; 82248; 82803; 83036; 83605; 83735; 84100; 84145; 84550; 85025; 85610; 85652; 85730; 86140; 87040; 87070; 87075; 87077; 87186; 87205; 89051; 93005; 96361; 96365; 96366; 96375; 96376; 97162; 99284; A4217; A4649; J0692; J0696; J1100; J1650; J1815; J1885; J2250; J2371; J2405; J2704; J2919; J3010; J3370; J3375; J3490; J7030; J7050; J7120; Q9967; A9270; G0480

== ENCOUNTER 2024-12-10 23:26 | Emergency (ER) | payer MEDICARE, MEDICAID, SELFPAY ==
[2024-12-10 23:27] VITALS: BMI 22.3
--- NOTE | 2024-12-11 00:36 | PC.NURSE ---
NO ANSWER FOR VITALS
--- NOTE | 2024-12-11 00:41 | PC.NURSE ---
NA ANSWER FOR VITALS
== END 2024-12-11 00:52 | disposition left against medical advice (07) ==
LOC: SERX 12-11 00:45
PROVIDERS: Emergency Provider Emergency Medicine
DX: Z53.21 Procedure and treatment not carried out due to patient leaving prior to being seen by health care provider (principal)
CPT/HCPCS: 99281